=== PATIENT | female | born 1935 | race Caucasian/White ===

== ENCOUNTER 2016-03-22 12:02 | Emergency (ER) | payer MEDICARE ==
[~2016-03-22 12:02] MED LIST: COLA100C3 PO; CYCL5TAB PO; DILT1TAB2 PO; LEVA500T PO; METO-309 PO; PRED10 PO; PREV30CA11 PO; TYLETAB34 PO
[2016-03-22] MEDS ORDERED: SODIUM CHLOR 0.9% 1000 ML INJ 1,000 ML IV SCH (12:06)
--- NOTE | 2016-03-22 12:08 | PD ---
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 Patient has been experiencing abdominal pain for the last 2-3 days. She states she's been nauseous today and last night. She has vomited once without any hematemesis identified. Patient had a KUB done at [facility] which showed an ileus. States the pain is severe , generalized pain. She denies any abdominal surgeries. Review of her records shows obstruction/constipation with a mass identified in November. Patient had colonoscopy with biopsy at that time. Per report no recent fever or chills. Patient is primarily wheelchair-bound. PFSH Past Medical History Arthritis: Yes Anxiety: Yes Depression: Yes Cancer: Yes (ADENOCARCINOMA LUNG CA) Cardiovascular Problems: Yes High Cholesterol: Yes Chemotherapy: Yes Cerebrovascular Accident: No Diabetes: No Diminished Hearing: No Endocrine: No Gastrointestinal Disorders: Yes (ACID REFLUX, CONSTIPATION, STRICTURE) GERD: Yes Genitourinary: No Hepatitis: No Hiatal Hernia: No Hypertension: Yes Immune Disorder: No Implanted Vascular Access Dvce: Yes (LT CHEST) Musculoskeletal: Yes Neurologic: Yes (C SPINE FX AND SURGERY) Psychiatric: Yes Reproductive: No Respiratory: Yes (Lung/neck CA) Immunizations Current: Yes Radiation Therapy: Yes Thyroid Disease: No Triglycerides - High: Yes Menopausal: Yes : 4 Para: 4 Miscarriage: 0 : 0 Past Surgical History AICD: No Body Medical Devices: CERVICAL SPINE HARDWARE Gynecologic Surgery: Yes (HYSTERECTOMY) Hysterectomy: Yes Joint Replacement: Yes (c-spine hardware) Neurologic Surgery: Yes (CERVICAL SPINE SURGERY AUGUST 2015) Pacemaker: No Thoracic Surgery: Yes (R LOBECTOMY 2012) Other Surgery: Yes (neck sx r/t cancer) Social History Alcohol Use: No (h/o) Tobacco Use: No (quit 08/2015) Substance Use: No Allergies-Medications (Allergen,Severity, Reaction): Coded Allergies: Sulfa (Verified Allergy, Unknown, 03/22/16) Morphine (Verified Adverse Reaction, Severe, Vomiting, 03/22/16) Reported Meds & Prescriptions Reported Meds & Active Scripts Active Prednisone 10 Mg Tab 10 Mg PO DIRECTED 12 Days 30mg po bid x 3 days, 20mg po bid x 3 days, 10mg po bid x 3 days, 10mg po daily x 3 days. Lopressor (Metoprolol Tartrate) 50 Mg Tab 50 Mg PO Q8H Levaquin (Levofloxacin) 500 Mg Tab 500 Mg PO DAILY Reported Flexeril (Cyclobenzaprine HCl) 5 Mg Tab 5 Mg PO BID Tylenol-Codeine #3 (Acetaminophen-Codeine) 300-30 mg Tab 1 Tab PO Q4H PRN Colace (Docusate Sodium) 100 Mg Cap 100 Mg PO BID Cardizem LA (Diltiazem ER 24 HR) 240 Mg Romel 240 Mg PO DAILY Prevacid (Lansoprazole) 30 Mg Capdr 30 Mg PO DAILY Review of Systems Except as stated in HPI: all other systems reviewed are Neg Physical Exam Narrative GENERAL: Chronically ill appearing female patient, lying in bed, in no acute distress SKIN: Warm and dry. Stage II and 3 pressure ulcers identified on the buttocks of the patient. HEAD: Atraumatic. Normocephalic. EYES: Pupils equal and round. No scleral icterus. No injection or drainage. ENT: No nasal bleeding or discharge. Mucous membranes pink and moist. NECK: Trachea midline. No JVD. CARDIOVASCULAR: Tachycardic rate and rhythm. RESPIRATORY: No accessory muscle use. Diminished throughout; near absent lower lobes. A she does have poor inspiratory effort. GASTROINTESTINAL: Abdomen rotund, diffuse tenderness to palpation. Moderate guarding. No rebound tenderness.. MUSCULOSKELETAL: No obvious deformities. No clubbing. No cyanosis. No edema. NEUROLOGICAL: Awake and alert. Oriented to self and place. No obvious cranial nerve deficits. Motor grossly within normal limits. Normal speech. Data Data Last Documented VS Vital Signs Date Time Temp Pulse Resp B/P Pulse Ox O2 Delivery O2 Flow Rate FiO2 03/22/16 13:07 92 18 142/78 95 Room Air 03/22/16 12:10 98.5 Orders Complete Blood Count With Diff (03/22/16 12:06) Comprehensive Metabolic Panel (03/22/16 12:06) Lipase (03/22/16 12:06) Lactic Acid (03/22/16 12:06) Prothrombin Time / Inr (Pt) (03/22/16 12:06) Act Partial Throm Time (Ptt) (03/22/16 12:06) Urinalysis - C+S If Indicated (03/22/16 12:06) Ct Abd/Pel W Iv Contrast(Rout) (03/22/16 12:06) Iv Access Insert/Monitor (03/22/16 12:06) Ecg Monitoring (03/22/16 12:06) Oximetry (03/22/16 12:06) NPO (03/22/16 12:06) Ondansetron Inj (Zofran Inj) (03/22/16 12:15) Sodium Chlor 0.9% 1000 Ml Inj (Ns 1000 M (03/22/16 12:06) Sodium Chloride 0.9% Flush (Ns Flush) (03/22/16 12:15) Electrocardiogram (03/22/16 12:06) Oral Contrast - Adult (03/22/16 12:11) Diatrizoate Liq ( Gastroview Liq) (03/22/16 12:32) Sodium Chlor 0.9% 1000 Ml Inj (Ns 1000 M (03/22/16 14:00) Iohexol 350 Inj (Omnipaque 350 Inj) (03/22/16 14:22) Act Partial Throm Time (Ptt) (03/22/16 14:25) Ckmb (Isoenzyme) Profile (03/22/16 14:25) Troponin I (03/22/16 14:25) Blood Culture (03/22/16 14:25) Chest, Single Ap (03/22/16 14:25) Blood Glucose (03/22/16 14:25) Oxygen Administration (03/22/16 14:25) Piperacil-Tazo 4.5 Gm Premix (Zosyn 4.5 (03/22/16 14:25) Sodium Chlor 0.9% 1000 Ml Inj (Ns 1000 M (03/22/16 14:30) Ng Gastric Tube Insert/Monitor (03/22/16 15:07) Consult General Surgery (03/22/16 ) Labs Laboratory Tests Test 03/22/16 12:45 White Blood Count 10.2 TH/MM3 Red Blood Count 3.84 MIL/MM3 Hemoglobin 12.4 GM/DL Hematocrit 36.5 % Mean Corpuscular Volume 95.1 FL Mean Corpuscular Hemoglobin 32.2 PG Mean Corpuscular Hemoglobin 33.9 % Concent Red Cell Distribution Width 16.9 % Platelet Count 107 TH/MM3 Mean Platelet Volume 8.8 FL Neutrophils (%) (Auto) 97.2 % Lymphocytes (%) (Auto) 1.1 % Monocytes (%) (Auto) 0.7 % Eosinophils (%) (Auto) 0.0 % Basophils (%) (Auto) 1.0 % Neutrophils # (Auto) 9.9 TH/MM3 Lymphocytes # (Auto) 0.1 TH/MM3 Monocytes # (Auto) 0.1 TH/MM3 Eosinophils # (Auto) 0.0 TH/MM3 Basophils # (Auto) 0.1 TH/MM3 CBC Comment AUTO DIFF Differential Total Cells 100 Counted Neutrophils % (Manual) 69 % Band Neutrophils % 24 % Lymphocytes % 3 % Monocytes % 3 % Neutrophils # (Manual) 9.6 TH/MM3 Myelocytes 1 % Differential Comment FINAL DIFF MANUAL Toxic Granulation 1+ Platelet Estimate LOW Platelet Morphology Comment NORMAL Red Cell Morphology Comment NORMAL Prothrombin Time 10.6 SEC Prothromb Time International 1.0 RATIO Ratio Activated Partial 23.6 SEC Thromboplast Time Sodium Level 131 MEQ/L Potassium Level 4.0 MEQ/L Chloride Level 94 MEQ/L Carbon Dioxide Level 25.1 MEQ/L Anion Gap 12 MEQ/L Blood Urea Nitrogen 31 MG/DL Creatinine 0.95 MG/DL Estimat Glomerular Filtration 57 ML/MIN Rate Random Glucose 171 MG/DL Lactic Acid Level 2.5 mmol/L Calcium Level 9.3 MG/DL Total Bilirubin 0.5 MG/DL Aspartate Amino Transf 29 U/L (AST/SGOT) Alanine Aminotransferase 39 U/L (ALT/SGPT) Alkaline Phosphatase 119 U/L Total Protein 7.3 GM/DL Albumin 2.0 GM/DL Lipase 183 U/L [facility] Medical Decision Making Medical Screen Exam Complete: Yes Emergency Medical Condition: Yes Medical Record Reviewed: Yes Differential Diagnosis obstruction versus ileus versus constipation Narrative Course 80-year-old female presents to the emergency department from her alf for evaluation of abdominal pain. Patient has generalized abdominal pain, guarding, nausea, with an episode of vomiting. KUB did show ileus. Lab work and CT is ordered. CBC is with bandemia of 24. CMP is with mild hyponatremia 131. BUN is 31. Lactic acid is 2.5. Patient is given IV fluids, Zosyn as ordered. A call has been received are nursing staff from radiologist stating the patient has free air in his abdomen with a perforation, location unknown. A call has been placed and general surgery. Last Impressions Abdomen/Pelvis CT 03/22/16 1206 Signed Impressions: Service Date/Time: Sunday, March 22, 2016 14:19 - CONCLUSION: Significantly abnormal exam. There is a large amount of free air identified within the abdomen concerning for bowel perforation. There is abnormal dilation of the small bowel concerning for small bowel obstruction. This continues to the level of the junction with the transverse bowel which is diffusely distended with stool. The cecum and descending colon appear surgically absent. There are new cystic cavitary lesions identified within the left lung base concerning for either metastatic lesions or abscesses.. Cammy Espinoza MD 1510 I was able to get a hold of the patient's son. He states patient is currently on hospice. She is a DNR. She was followed by medical oncology and has underwent radiation and chemotherapy but has deferred any further treatment. He does not recall any abdominal surgeries in the last 3 years. States that the patient only had a colonoscopy with biopsy. He is on his way to the hospital to be with his mother. 1600 Dr. Desai, myself, and family are at bedside. Dr. Desai has gone over all options for treatment with the pt and family. At this time the pt verbalizes not wanting to suffer anymore. The son supports his mom's decision. Admission is cancelled; case management is contacted to arrange for HOSPICE care center placement. Physician Communication Physician Communication I am given a message from nursing staff that the radiologist called and said the patient has significant amount of free air in the abdomen with a perforation. Location at this point is undetermined. A call has been placed to Gen. surgery. I spoke with Dr. Desai, general surgeon on-call. At this time , patient's history continues to be piece mealed together. Calls have been placed to the son with no success of reaching him. Dr. Desai also spoke with my attending physician Dr. Dyson who spoke with radiology and confirmed location is uncertain at this point. Radiologist suggests patient has had recent abdominal surgery. Diagnosis Primary Impression: Sepsis Qualified Code: A41.9 - Sepsis, due to unspecified organism Additional Impressions: Perforated bowel Abdominal pain Qualified Code: R10.84 - Generalized abdominal pain Adenocarcinoma, lung Qualified Code: C34.90 - Adenocarcinoma, lung, unspecified laterality Metastatic adenocarcinoma Disposition: 51 HOSPICE/MED FACILITY Condition: Stable Janis Myers Mar 22, 2016 12:07
[2016-03-22 12:10] VITALS: BP 148/79; PULSE 102; RESP 20; TEMP 98.5; O2SAT 95
[2016-03-22] MEDS ORDERED: SODIUM CHLORIDE 0.9% FLUSH 5 ML FLUSH IVF PRN (12:15)
[2016-03-22] MEDS ORDERED: ONDANSETRON HCL 4 MG/2 ML VIAL IVP ONE (12:15)
[2016-03-22] MEDS ORDERED: DIATRIZOATE MEGLUM/DIATRIZOATE SOD 9 ML CUP ONE (12:32)
[2016-03-22 13:04] LABS: AUTOMATED NEUTROPHIL # 9.9 TH/MM3 (1.8-7.7); BASOPHIL # 0.1 TH/MM3 (0-0.2); HEMATOCRIT 36.5 % (35.0-46.0); LYMPH % 1.1 % (9.0-44.0); LYMPHOCYTE # 0.1 TH/MM3 (1.0-4.8); MEAN CELL VOLUME 95.1 FL (80.0-100.0); MEAN CORPUSCULAR HEMOGLOBIN 32.2 PG (27.0-34.0); MEAN CORPUSCULAR HGB CONC 33.9 % (32.0-36.0); MONO % 0.7 % (0.0-8.0); NEUT % 97.2 % (16.0-70.0); PLATELET COUNT 107 TH/MM3 (150-450); RED BLOOD COUNT 3.84 MIL/MM3 (4.00-5.30); RED CELL DISTRIBUTION WIDTH 16.9 % (11.6-17.2); WHITE BLOOD COUNT 10.2 TH/MM3 (4.0-11.0)
[2016-03-22 13:07] VITALS: BP 142/78; PULSE 92; RESP 18; O2SAT 95
[2016-03-22 13:11] LABS: APTT (PATIENT) 23.6 SEC (24.3-30.1); PROTHROMBIN TIME - PATIENT 10.6 SEC (9.8-11.6)
[2016-03-22 13:13] LABS: HEMO FLAGS AUTO DIFF
[2016-03-22 13:27] LABS: ANION GAP 12 MEQ/L (5-15); AST (GOT) 29 U/L (15-37); BICARBONATE 25.1 MEQ/L (21.0-32.0); BLOOD UREA NITROGEN 31 MG/DL (7-18); CHLORIDE 94 MEQ/L (98-107); GLOMERULAR FILTRATION RATE 57 ML/MIN (>89); SODIUM (NA) 131 MEQ/L (136-145)
[2016-03-22 13:33] LABS: ALKALINE PHOSPHATASE 119 U/L (45-117); ALT (GPT) 39 U/L (10-53); TOTAL BILIRUBIN ADULT 0.5 MG/DL (0.2-1.0)
[2016-03-22 13:49] LABS: BANDS 24 % (0-6); MYELOCYTES 1 % (0-0); NEUTROPHIL # MANUAL DIFF 9.6 TH/MM3 (1.8-7.7); POLYS (SEG NEUTROPHILS) 69 % (16-70); WBC DIFF SAMPLE 100
[2016-03-22 13:50] LABS: PLATELET ESTIMATE SMEAR LOW (NORMAL); PLATELET MORPHOLOGY NORMAL (NORMAL); SCAN/DIFF FINAL DIFF MANUAL; TOXIC GRANULATION 1+ (NORMAL)
[2016-03-22] MEDS ORDERED: SODIUM CHLOR 0.9% 1000 ML INJ 1,000 ML IV ONE ×2 (14:00→14:30)
[2016-03-22] MEDS ORDERED: IOHEXOL 350 MG/ML 10 ML VIAL (for RAD DIAG) IV ONE (14:22)
[2016-03-22] MEDS ORDERED: PIPERACIL-TAZO 4.5 GM PREMIX 100 ML IV STA (14:25)
--- NOTE | 2016-03-22 14:55 | RADRPT ---
EXAM DATE/TIME: 03/22/2016 14:19 [facility] COMPARISON: CT ABDOMEN & PELVIS W/O CONTRAST, January 03, 2016, 16:33. CT ABDOMEN & PELVIS W CONTRAST, November 20, 2015, 15:57. INDICATIONS : Abdominal pain with distension. IV CONTRAST: 71 cc Omnipaque 350 (iohexol) IV ORAL CONTRAST: Prescribed oral contrast ingested. RADIATION DOSE: 4.77 CTDIvol (mGy) MEDICAL HISTORY : Hypertension. Cardiovascular disease Gastroesophageal reflux disease.Lung and neck cancer. SURGICAL HISTORY : Hysterectomy. Right lobectomy. ENCOUNTER: Initial ACUITY: 2 days PAIN SCALE: 6/10 LOCATION: Abdomen/pelvis TECHNIQUE: Volumetric scanning of the abdomen and pelvis was performed. Using automated exposure control and ad justment of the mA and/or kV according to patient size, radiation dose was kept as low as reasonably achievable to obtain optimal diagnostic quality images. FINDINGS: This is a significantly abnormal exam. Results were relayed to the charge nurse Laine Johnson. The lung bases demonstrate new cystic lesions within the left lung base and a stable solid 8mm l esion identified within the medial right lower lung. There is a new small right-sided pleural effusio n. Heart size remains normal without evidence of pericardial effusion. The abdomen is significant for extensive amount of free air. There is abnormal dilation of the s mall bowel which is fluid-filled. A clear transition point is not identified. There is a large amount of stool identified within the rectum, descending colon and within the distended transverse colon. T he ascending colon and cecum appear surgically absent. Stable extensive atherosclerosis. The bladder is well-distended and otherwise unremarkable. The osseous structures are significant only for stable degenerative change.. CONCLUSION: Significantly abnormal exam. There is a large amount of free air identified within the abdomen concer eliseo for bowel perforation. There is abnormal dilation of the small bowel concerning for small bowel obstruction. This continues to the level of the junction with the transverse bowel which is diffusely distended with stool. The cecum and descending colon appear surgically absent. There are new cystic cavitary lesions identified within the left lung base concerning for either metastatic lesions or abs cesses.. Cammy Espinoza MD on March 22, 2016 at 14:41 Board Certified Radiologist. This report was verified electronically.
--- NOTE | 2016-03-22 15:58 | RADRPT ---
EXAM DATE/TIME: 03/22/2016 15:18 [facility] COMPARISON: CT ABDOMEN & PELVIS W CONTRAST, March 22, 2016, 14:19. INDICATIONS : Fever and epigastric pain for a day. MEDICAL HISTORY : Carcinoma, lung. Metastatic, bone. Hypertension. SURGICAL HISTORY : Lobectomy. Hysterectomy. ENCOUNTER: Initial ACUITY: 2 days PAIN SCORE: 3/10 LOCATION: Bilateral chest FINDINGS: AP upright view of the chest demonstrates cystic lucencies within the left lung base, better evaluate d on comparison CT. The lungs are otherwise clear. Central line overlying the distal SVC. Heart size is normal. Free air is noted underneath the diaphragm. Osseous structures are grossly unremarkable. CONCLUSION: Free air under the diaphragm noted on comparison CT. Cystic lucencies within the lung base which are new as compared to the prior exam consistent with either necrotic metastases or abscesses.. Cammy Espinoza MD on March 22, 2016 at 15:55 Board Certified Radiologist. This report was verified electronically.
--- NOTE | 2016-03-22 16:15 | PD ---
Physical Exam Narrative General: In severe distress, focused exam performed Skin:pale Eyes: pupils equal Neck: trachea midline Cardiovascular: Regular rate and rhythm Abdomen: Rebound and guarding with diffuse tenderness Neuro: Motor and sensory grossly within normal limits, clear speech Data Data Last Documented VS Vital Signs Date Time Temp Pulse Resp B/P Pulse Ox O2 Delivery O2 Flow Rate FiO2 03/22/16 13:07 92 18 142/78 95 Room Air 03/22/16 12:10 98.5 Orders Complete Blood Count With Diff (03/22/16 12:06) Comprehensive Metabolic Panel (03/22/16 12:06) Lipase (03/22/16 12:06) Lactic Acid (03/22/16 12:06) Prothrombin Time / Inr (Pt) (03/22/16 12:06) Act Partial Throm Time (Ptt) (03/22/16 12:06) Urinalysis - C+S If Indicated (03/22/16 12:06) Ct Abd/Pel W Iv Contrast(Rout) (03/22/16 12:06) Iv Access Insert/Monitor (03/22/16 12:06) Ecg Monitoring (03/22/16 12:06) Oximetry (03/22/16 12:06) NPO (03/22/16 12:06) Ondansetron Inj (Zofran Inj) (03/22/16 12:15) Sodium Chlor 0.9% 1000 Ml Inj (Ns 1000 M (03/22/16 12:06) Sodium Chloride 0.9% Flush (Ns Flush) (03/22/16 12:15) Electrocardiogram (03/22/16 12:06) Oral Contrast - Adult (03/22/16 12:11) Diatrizoate Liq ( Gastroview Liq) (03/22/16 12:32) Sodium Chlor 0.9% 1000 Ml Inj (Ns 1000 M (03/22/16 14:00) Iohexol 350 Inj (Omnipaque 350 Inj) (03/22/16 14:22) Act Partial Throm Time (Ptt) (03/22/16 14:25) Ckmb (Isoenzyme) Profile (03/22/16 14:25) Troponin I (03/22/16 14:25) Blood Culture (03/22/16 14:25) Chest, Single Ap (03/22/16 14:25) Blood Glucose (03/22/16 14:25) Oxygen Administration (03/22/16 14:25) Piperacil-Tazo 4.5 Gm Premix (Zosyn 4.5 (03/22/16 14:25) Sodium Chlor 0.9% 1000 Ml Inj (Ns 1000 M (03/22/16 14:30) Ng Gastric Tube Insert/Monitor (03/22/16 15:07) Consult General Surgery (03/22/16 ) Consult Psychiatry Adult Physician (03/22/16 ) Labs Laboratory Tests Test 03/22/16 12:45 White Blood Count 10.2 TH/MM3 Red Blood Count 3.84 MIL/MM3 Hemoglobin 12.4 GM/DL Hematocrit 36.5 % Mean Corpuscular Volume 95.1 FL Mean Corpuscular Hemoglobin 32.2 PG Mean Corpuscular Hemoglobin 33.9 % Concent Red Cell Distribution Width 16.9 % Platelet Count 107 TH/MM3 Mean Platelet Volume 8.8 FL Neutrophils (%) (Auto) 97.2 % Lymphocytes (%) (Auto) 1.1 % Monocytes (%) (Auto) 0.7 % Eosinophils (%) (Auto) 0.0 % Basophils (%) (Auto) 1.0 % Neutrophils # (Auto) 9.9 TH/MM3 Lymphocytes # (Auto) 0.1 TH/MM3 Monocytes # (Auto) 0.1 TH/MM3 Eosinophils # (Auto) 0.0 TH/MM3 Basophils # (Auto) 0.1 TH/MM3 CBC Comment AUTO DIFF Differential Total Cells 100 Counted Neutrophils % (Manual) 69 % Band Neutrophils % 24 % Lymphocytes % 3 % Monocytes % 3 % Neutrophils # (Manual) 9.6 TH/MM3 Myelocytes 1 % Differential Comment FINAL DIFF MANUAL Toxic Granulation 1+ Platelet Estimate LOW Platelet Morphology Comment NORMAL Red Cell Morphology Comment NORMAL Prothrombin Time 10.6 SEC Prothromb Time International 1.0 RATIO Ratio Activated Partial 23.6 SEC Thromboplast Time Sodium Level 131 MEQ/L Potassium Level 4.0 MEQ/L Chloride Level 94 MEQ/L Carbon Dioxide Level 25.1 MEQ/L Anion Gap 12 MEQ/L Blood Urea Nitrogen 31 MG/DL Creatinine 0.95 MG/DL Estimat Glomerular Filtration 57 ML/MIN Rate Random Glucose 171 MG/DL Lactic Acid Level 2.5 mmol/L Calcium Level 9.3 MG/DL Total Bilirubin 0.5 MG/DL Aspartate Amino Transf 29 U/L (AST/SGOT) Alanine Aminotransferase 39 U/L (ALT/SGPT) Alkaline Phosphatase 119 U/L Total Protein 7.3 GM/DL Albumin 2.0 GM/DL Lipase 183 U/L [facility] Supervised Visit with ILNNETTE: Yes Interpretation(s) CBC & BMP Diagram 03/22/16 12:45 Last 24 hours Impressions Chest X-Ray 03/22/16 1425 Signed Impressions: Service Date/Time: Tuesday, March 22, 2016 15:18 - CONCLUSION: Free air under the diaphragm noted on comparison CT. Cystic lucencies within the lung base which are new as compared to the prior exam consistent with either necrotic metastases or abscesses.. Cammy Espinoza MD Abdomen/Pelvis CT 03/22/16 1206 Signed Impressions: Service Date/Time: Tuesday, March 22, 2016 14:19 - CONCLUSION: Significantly abnormal exam. There is a large amount of free air identified within the abdomen concerning for bowel perforation. There is abnormal dilation of the small bowel concerning for small bowel obstruction. This continues to the level of the junction with the transverse bowel which is diffusely distended with stool. The cecum and descending colon appear surgically absent. There are new cystic cavitary lesions identified within the left lung base concerning for either metastatic lesions or abscesses.. Cammy Espinoza MD Narrative Course I, Dr. dyson, have reviewed the advance practice practitioner's documentation and am in agreement, met with the patient face to face, made the diagnosis, and the medical decision making was done by me. *My assessment and Findings: 80-year-old female with abdominal pain with blood work concerning for sepsis. on CAT scan she has perforated bowel and surgery was contacted. Discussed with Janis antibiotic therapy and IV fluid hydration. Son came to bedside and I also met with him and coordinated with Janis and they are electing to proceed with hospice care given her past history. All questions answered Critical Care Narrative Aggregate critical care time was 35 minutes. Time to perform other separately billable procedures was not included in the critical care time. My time did not include minutes spent treating any other patients simultaneously or on activities that did not directly contribute to the patient's treatment. The services I provided to this patient were to treat and/or prevent clinically significant deterioration that could result in: septic shock, I provided critical care services requiring my management, as noted below: Chart data review, documentation time, medication orders and management, vital sign assessments/reviewing monitor data, ordering and reviewing lab tests, ordering and interpreting/reviewing x-rays and diagnostic studies, care of the patient and discussion of the patient with the admitting physicians. Physician Communication Physician Communication lengthy discussion with radiologist and surgeon over phone to coordinate care and help find exact area of perforation with significant free air Diagnosis Primary Impression: Sepsis Qualified Code: A41.9 - Sepsis, due to unspecified organism Additional Impressions: Perforated bowel Metastatic adenocarcinoma Adenocarcinoma, lung Qualified Code: C34.90 - Adenocarcinoma, lung, unspecified laterality Abdominal pain Qualified Code: R10.84 - Generalized abdominal pain Condition: Stable Ilsa Dyson MD Mar 22, 2016 16:15
--- NOTE | 2016-03-22 17:00 | PD.CONS ---
HPI Service General surgery Consult Requested By Janis NOYOLA Reason for Consult Pneumoperitoneum Primary Care Physician Nell Taylor MD History of Present Illness This is an 80-year-old female known to for [facility] care general surgery who has stage IV lung cancer and presents with abdominal pain. She is currently on hospice at [facility]. She has been in and out of the hospital over the last few months. She is a DNR. She has had difficulty tolerating oral intake for a while and has struggled with constipation. The patient states that she has been "suffering" over these last few months with decline in her health. She had a KUB yesterday showing an ileus. She presented with these complaints and a CT scan of her abdomen was performed showing pneumoperitoneum. She has a bandemia of 24. I'm consulted for further recommendations and possible operation. Review of Systems Constitutional: DENIES: Fever, Chills Eyes: DENIES: Eye inflammation, Eye pain Respiratory: DENIES: Cough, Wheezing Cardiovascular: DENIES: Chest pain, Palpitations Gastrointestinal: COMPLAINS OF: Abdominal pain, Constipation Integumentary: DENIES: Pruritus, Rash Past Family Social History Past Medical History Stage IV lung cancer seen by Dr. Adolfo mathias with hx of RVR Small PE (12/2015) Anxiety Depression Hypercholesterolemia Hypertension Chronic pain Past Surgical History [id number] November [address] clements Right lung lobectomy 2013 Cervical fusion 2015 related to metastatic disease Reported Medications Reported Meds & Active Scripts Active Prednisone 10 Mg Tab 10 Mg PO DIRECTED 12 Days 30mg po bid x 3 days, 20mg po bid x 3 days, 10mg po bid x 3 days, 10mg po daily x 3 days. Lopressor (Metoprolol Tartrate) 50 Mg Tab 50 Mg PO Q8H Levaquin (Levofloxacin) 500 Mg Tab 500 Mg PO DAILY Reported Flexeril (Cyclobenzaprine HCl) 5 Mg Tab 5 Mg PO BID Tylenol-Codeine #3 (Acetaminophen-Codeine) 300-30 mg Tab 1 Tab PO Q4H PRN Colace (Docusate Sodium) 100 Mg Cap 100 Mg PO BID Cardizem LA (Diltiazem ER 24 HR) 240 Mg Romel 240 Mg PO DAILY Prevacid (Lansoprazole) 30 Mg Capdr 30 Mg PO DAILY Allergies: Coded Allergies: Sulfa (Verified Allergy, Unknown, 03/22/16) Morphine (Verified Adverse Reaction, Severe, Vomiting, 03/22/16) Active Ordered Medications Current Medications Medications (Trade) Dose Ordered Sig/Jeremias Route Start Time Stop Time Status Last Admin (NS Flush) 2 ml UNSCH PRN IVF 03/22/16 12:15 Family History Noncontributory Social History Her son and [id number] are present. She currently is residing in [facility]. No current alcohol or tobacco use. Physical Exam Vital Signs Vital Signs Date Time Temp Pulse Resp B/P Pulse Ox O2 Delivery O2 Flow Rate FiO2 03/22/16 13:07 92 18 142/78 95 Room Air 03/22/16 12:10 98.5 102 20 148/79 95 Physical Exam GENERAL: Awake and alert. Appears chronically ill. HEAD: Normocephalic. Atraumatic. EYES: Pupils equal round and reactive to light bilaterally. No scleral icterus. NECK: Trachea midline. CHEST: Lungs clear to auscultation bilaterally with no wheezing or rhonchi. No respiratory distress. CARDIOVASCULAR: Sinus tachycardia. ABDOMEN: Moderate distention. Mild tenderness in the upper abdomen. No severe tenderness lower abdomen bilaterally with rebound. Not rigid. EXTREMITIES: No cyanosis or edema. SKIN: Cool, dry, nonjaundiced. Laboratory Laboratory Tests Test 03/22/16 12:45 White Blood Count 10.2 Red Blood Count 3.84 Hemoglobin 12.4 Hematocrit 36.5 Mean Corpuscular Volume 95.1 Mean Corpuscular Hemoglobin 32.2 Mean Corpuscular Hemoglobin 33.9 Concent Red Cell Distribution Width 16.9 Platelet Count 107 Mean Platelet Volume 8.8 Neutrophils (%) (Auto) 97.2 Lymphocytes (%) (Auto) 1.1 Monocytes (%) (Auto) 0.7 Eosinophils (%) (Auto) 0.0 Basophils (%) (Auto) 1.0 Neutrophils # (Auto) 9.9 Lymphocytes # (Auto) 0.1 Monocytes # (Auto) 0.1 Eosinophils # (Auto) 0.0 Basophils # (Auto) 0.1 CBC Comment AUTO DIFF Differential Total Cells 100 Counted Neutrophils % (Manual) 69 Band Neutrophils % 24 Lymphocytes % 3 Monocytes % 3 Neutrophils # (Manual) 9.6 Myelocytes 1 Differential Comment FINAL DIFF MANUAL Toxic Granulation 1+ Platelet Estimate LOW Platelet Morphology Comment NORMAL Red Cell Morphology Comment NORMAL Prothrombin Time 10.6 Prothromb Time International 1.0 Ratio Activated Partial 23.6 Thromboplast Time Sodium Level 131 Potassium Level 4.0 Chloride Level 94 Carbon Dioxide Level 25.1 Anion Gap 12 Blood Urea Nitrogen 31 Creatinine 0.95 Estimat Glomerular Filtration 57 Rate Random Glucose 171 Lactic Acid Level 2.5 Calcium Level 9.3 Total Bilirubin 0.5 Aspartate Amino Transf 29 (AST/SGOT) Alanine Aminotransferase 39 (ALT/SGPT) Alkaline Phosphatase 119 Total Protein 7.3 Albumin 2.0 Lipase 183 Result Diagram: 03/22/16 1245 03/22/16 1245 Imaging Last Impressions Chest X-Ray 03/22/16 1425 Signed Impressions: Service Date/Time: Tuesday, March 22, 2016 15:18 - CONCLUSION: Free air under the diaphragm noted on comparison CT. Cystic lucencies within the lung base which are new as compared to the prior exam consistent with either necrotic metastases or abscesses.. Cammy Espinoza MD Abdomen/Pelvis CT 03/22/16 1206 Signed Impressions: Service Date/Time: Tuesday, March 22, 2016 14:19 - CONCLUSION: Significantly abnormal exam. There is a large amount of free air identified within the abdomen concerning for bowel perforation. There is abnormal dilation of the small bowel concerning for small bowel obstruction. This continues to the level of the junction with the transverse bowel which is diffusely distended with stool. The cecum and descending colon appear surgically absent. There are new cystic cavitary lesions identified within the left lung base concerning for either metastatic lesions or abscesses.. Cammy Espinoza MD Assessment and Plan Assessment and Plan 80-year-old female with declining health over the last few months with stage IV lung cancer presents with perforated viscus, most likely perforated colon. I had a discussion with the patient, her son, and her [id number] about her situation. Operatively, she would require exploratory laparotomy probably with segmental colectomy and colostomy. She would have prolonged hospitalization and the need to return to rehabilitation or intermediate. Due to her declining overall health and stage IV lung cancer I recommended the option of nonoperative management and comfort care only. I did tell the patient and her family that this would almost certainly result in her life ending over the next few days. The patient very clearly states that she does not want to continue suffering and is very much at peace with . She does not desire an operation. Her son and [id number] are appropriately grieving, but agree with hospice and comfort care. Discussed with Dr. Dyson and Janis NOYOLA and appreciate her care for the patient. Lloyd,Canelo ALVAREZ Mar 22, 2016 16:59
[2016-03-22 19:20] VITALS: BP 135/82
--- NOTE | 2016-03-23 10:49 | EKG ---
Date Performed: 03/22/2016 Time Performed: 13:54:08 PTAGE: 80 years EKG: SINUS TACHYCARDIA WITH FREQUENT SUPRAVENTRICULAR PREMATURE COMPLEXES RIGHT BUNDLE BRANCH BL OCK ABNORMAL ECG PREVIOUS TRACING : 01/26/2016 17.52 Compared to prior tracing no significant change DOCTOR: Josiah Vásquez Interpretating Date/Time 03/23/2016 10:47:12
== END 2016-03-22 19:26 | disposition hospice, inpatient (51) ==
LOC: NEDAMB 12:02 → UNDOADMIN 15:30 → NEDA 15:30
DX: K63.1 Perforation of intestine (nontraumatic) (principal); A41.9 Sepsis, unspecified organism; R10.84 Generalized abdominal pain; R00.0 Tachycardia, unspecified; I45.10 Unspecified right bundle-branch block; C34.90 Malignant neoplasm of unspecified part of unspecified bronchus or lung; I48.91 Unspecified atrial fibrillation; I10 Essential (primary) hypertension; E78.00 Pure hypercholesterolemia, unspecified; G89.29 Other chronic pain; Z66 Do not resuscitate
CPT/HCPCS: 71010; 74177; 80053; 82550; 83605; 83690; 84484; 85007; 85027; 85610; 85730; 93005; 96361; 96374; 96375; 99291; J2405; J2543; J7030; Q9963; Q9967